=== PATIENT | female | born 1975 | race American Indian/Alaskan Native ===

== ENCOUNTER 2017-07-18 18:29 | Emergency (ER) | payer MEDICAID ==
[2017-07-18] MEDS ORDERED: CATAPRES PO ONE (19:28)
[2017-07-18 19:55] LABS: Hematocrit 39.4 % (30.3-42.9); Hemoglobin 12.3 gm/dl (10.1-14.3); Mean Corpuscular HGB Conc 31 % (30-34); Mean Corpuscular Volume 73 fl (79-97); Platelet Count 195 K/mm3 (140-440); Red Blood Count 5.41 M/mm3 (3.65-5.03); Red Cell Distribution Width 17.3 % (13.2-15.2)
[2017-07-18 20:05] LABS: Calcium 9.2 mg/dL (8.4-10.2)
[2017-07-18 20:10] LABS: Mean Corpuscular Hemoglobin 23 pg (28-32)
[2017-07-18 20:59] LABS: Basophils % (Manual) 0 % (0.0-1.8); Total Cells Counted 100
[2017-07-18 21:00] LABS: Giant Platelets 1+; Ovalocytes 1+; Poikilocytosis Few
[2017-07-18 21:01] LABS: Platelet Estimate Consistent w Auto
[2017-07-18] MEDS ORDERED: APRESOLINE IV ONE ×2 (21:27→22:39)
[2017-07-18] MEDS ORDERED: FIORICET PO ONE (21:27)
--- NOTE | 2017-07-18 21:44 | Emergency Department Report ---
HPI - General Chief Complaint: High BP Time Seen by Provider: 07/18/17 21:10 - HPI HPI: Room 10 The patient is a 41-year-old female presenting with a chief complaint of headache and hypertension. The patient states her symptoms began last night with headache and left neck pain. The patient felt his low blood pressure was elevated so eventually decided to come to the emergency department for evaluation. The patient has a history of hypertension but states she is only tried home remedies to control it. Patient denied ever having chest pain/ pressure/tightness/discomfort of any type (this was confirmed via translation by the patient's visitor). Patient denies nausea/vomiting or fever. Patient states she has a headache and gives it a score of 5/10. Location: [See above] Duration: [See above] Quality: Aching Severity: 5/10 Modifying factors: [see above] Context: [see above] Mode of transportation: [not driving] ED Past Medical Hx - Past Medical History Hx Hypertension: Yes (no medications) - Surgical History Additional Surgical History: C- section X1 - Family History Family history: no significant - Social History Smoking Status: Never Smoker Substance Use Type: None (denies illicit drug use) - Medications Home Medications: Home Medications Medication Instructions Recorded Confirmed Last Taken Type amLODIPine [Norvasc] 5 mg PO DAILY #90 tab 07/19/17 Unknown Rx ED Review of Systems ROS: Stated complaint: HYPERTENSIVE Other details as noted in HPI Constitutional: no symptoms reported Eyes: denies: eye pain ENT: denies: throat pain Respiratory: cough Cardiovascular: denies: chest pain Gastrointestinal: denies: abdominal pain Genitourinary: denies: dysuria Musculoskeletal: denies: back pain Neurological: headache Physical Exam - Physical Exam Vital Signs: Vital Signs 07/18/17 07/18/17 07/18/17 19:19 19:35 20:48 Temperature 98.8 F Pulse Rate 78 78 Respiratory 16 Rate Blood Pressure 221/138 221/138 Blood Pressure [Right] O2 Sat by Pulse 98 98 Oximetry 07/18/17 07/18/17 07/18/17 20:57 21:00 21:30 Temperature 98.3 F Pulse Rate 65 61 58 L Respiratory 20 11 L 21 Rate Blood Pressure 189/111 200/123 Blood Pressure 180/125 [Right] O2 Sat by Pulse 99 99 100 Oximetry Physical Exam: GENERAL: The patient is well-developed well-nourished female lying on stretcher not appearing to be in acute distress. [] HEENT: Normocephalic. Atraumatic. Extraocular motions are intact. Patient has moist mucous membranes. Patient complains of slight pain at the left TMJ NECK: Supple. No meningitic signs are noted. Trachea midline. No carotid bruits bilaterally CHEST/LUNGS: Clear to auscultation. There is no respiratory distress noted. HEART/CARDIOVASCULAR: Regular. There is no tachycardia. There is no gallop rub or murmur. ABDOMEN: Abdomen is soft, nontender. Patient has normal bowel sounds. There is no abdominal distention. SKIN: There is no rash. There is no edema. There is no diaphoresis. NEURO: The patient is awake, alert, and oriented. The patient is cooperative. The patient has no focal neurologic deficits. The patient has normal speech. Cranial nerves II through XII grossly intact, no drift. Radiotelegraphist 5+/5 bilaterally. Normal sensation throughout MUSCULOSKELETAL: There is no evidence of acute injury. ED Course Vital Signs 07/18/17 07/18/17 07/18/17 19:19 19:35 20:48 Temperature 98.8 F Pulse Rate 78 78 Respiratory 16 Rate Blood Pressure 221/138 221/138 Blood Pressure [Right] O2 Sat by Pulse 98 98 Oximetry 07/18/17 07/18/17 07/18/17 20:57 21:00 21:30 Temperature 98.3 F Pulse Rate 65 61 58 L Respiratory 20 11 L 21 Rate Blood Pressure 189/111 200/123 Blood Pressure 180/125 [Right] O2 Sat by Pulse 99 99 100 Oximetry - Reevaluation(s) Reevaluation #1: 07/18/17 23:30 Patient began complaining of nausea, chest discomfort and diaphoresis. Patient blood pressure was found to have decreased to 138 systolic. Patient's reaction is likely secondary to blood pressure change. Will obtain stat EKG and admitted the patient to the hospital for further observation. CT findings and need for MRI for follow-up discuss with family Reevaluation #2: 07/19/17 00:11 Patient states she feels better now and does not wish to be admitted to the hospital. I discussed with the patient length my concern for her event in conjunction with her EKG findings that she should be admitted to the hospital for further evaluation. This was translated by the patient's family and the patient verbalizes understanding. Patient does not wish to stay in the hospital. Strong warnings given ED Medical Decision Making - Lab Data Result diagrams: 07/18/17 19:39 07/18/17 19:39 Laboratory Tests 07/18/17 07/18/17 07/18/17 19:39 19:39 19:39 WBC 4.7 RBC 5.41 H Hgb 12.3 Hct 39.4 MCV 73 L MCH 23 L MCHC 31 RDW 17.3 H Plt Count 195 Lymph % (Auto) Slackline Operator Add Manual Diff Complete Total Counted 100 Seg Neutrophils % Slackline Operator Seg Neuts % (Manual) 39.0 L Band Neutrophils % 0 Lymphocytes % (Manual) 49.0 H Reactive Lymphs % (Man) 0 Monocytes % (Manual) 10.0 H Eosinophils % (Manual) 2.0 Basophils % (Manual) 0 Metamyelocytes % 0 Myelocytes % 0 Promyelocytes % 0 Blast Cells % 0 Nucleated RBC % Not Reportable Seg Neutrophils # Man 1.8 Band Neutrophils # 0.0 Lymphocytes # (Manual) 2.3 Abs React Lymphs (Man) 0.0 Monocytes # (Manual) 0.5 Eosinophils # (Manual) 0.1 Basophils # (Manual) 0.0 Metamyelocytes # 0.0 Myelocytes # 0.0 Promyelocytes # 0.0 Blast Cells # 0.0 WBC Morphology Not Reportable Hypersegmented Neuts Not Reportable Hyposegmented Neuts Not Reportable Hypogranular Neuts Not Reportable Smudge Cells Not Reportable Toxic Granulation Not Reportable Toxic Vacuolation Not Reportable Dohle Bodies Not Reportable Pelger-Huet Anomaly Not Reportable Jazlyn Rods Not Reportable Platelet Estimate Consistent w auto Clumped Platelets Not Reportable Plt Clumps, EDTA Not Reportable Large Platelets Not Reportable Giant Platelets 1+ Platelet Satelliting Not Reportable Plt Morphology Comment Not Reportable RBC Morphology Not Reportable Dimorphic RBCs Not Reportable Polychromasia Not Reportable Hypochromasia Not Reportable Poikilocytosis Few Anisocytosis Not Reportable Microcytosis 1+ Macrocytosis Not Reportable Spherocytes Not Reportable Pappenheimer Bodies Not Reportable Sickle Cells Not Reportable Target Cells Not Reportable Tear Drop Cells Not Reportable Ovalocytes 1+ Helmet Cells Not Reportable [place] Bodies Not Reportable [place] Rings Not Reportable Staci Cells Not Reportable Bite Cells Not Reportable Crenated Cell Not Reportable Elliptocytes Not Reportable Acanthocytes (Spur) Not Reportable Rouleaux Not Reportable Hemoglobin C Crystals Not Reportable Schistocytes Not Reportable Malaria parasites Not Reportable Srinivas Bodies Not Reportable Hem Pathologist Commnt No Sodium 139 Potassium 3.7 Chloride 102.9 Carbon Dioxide 25 Anion Gap 15 BUN 11 Creatinine 1.1 Estimated GFR 54 BUN/Creatinine Ratio 10 Glucose 81 Calcium 9.2 Total Creatine Kinase CK-MB (CK-2) CK-MB (CK-2) Rel Index Troponin T HCG, Qual Negative 07/18/17 19:39 WBC RBC Hgb Hct MCV MCH MCHC RDW Plt Count Lymph % (Auto) Add Manual Diff Total Counted Seg Neutrophils % Seg Neuts % (Manual) Band Neutrophils % Lymphocytes % (Manual) Reactive Lymphs % (Man) Monocytes % (Manual) Eosinophils % (Manual) Basophils % (Manual) Metamyelocytes % Myelocytes % Promyelocytes % Blast Cells % Nucleated RBC % Seg Neutrophils # Man Band Neutrophils # Lymphocytes # (Manual) Abs React Lymphs (Man) Monocytes # (Manual) Eosinophils # (Manual) Basophils # (Manual) Metamyelocytes # Myelocytes # Promyelocytes # Blast Cells # WBC Morphology Hypersegmented Neuts Hyposegmented Neuts Hypogranular Neuts Smudge Cells Toxic Granulation Toxic Vacuolation Dohle Bodies Pelger-Huet Anomaly Jazlyn Rods Platelet Estimate Clumped Platelets Plt Clumps, EDTA Large Platelets Giant Platelets Platelet Satelliting Plt Morphology Comment RBC Morphology Dimorphic RBCs Polychromasia Hypochromasia Poikilocytosis Anisocytosis Microcytosis Macrocytosis Spherocytes Pappenheimer Bodies Sickle Cells Target Cells Tear Drop Cells Ovalocytes Helmet Cells [place]aba-[place] Bodies [place] Rings Staci Cells Bite Cells Crenated Cell Elliptocytes Acanthocytes (Spur) Rouleaux Hemoglobin C Crystals Schistocytes Malaria parasites Srinivas Bodies Hem Pathologist Commnt Sodium Potassium Chloride Carbon Dioxide Anion Gap BUN Creatinine Estimated GFR BUN/Creatinine Ratio Glucose Calcium Total Creatine Kinase 78 CK-MB (CK-2) < 1.0 CK-MB (CK-2) Rel Index 1.2 Troponin T < 0.010 HCG, Qual - EKG Data -: EKG Interpreted by Md EKG shows normal: sinus rhythm Rate: normal - EKG Data When compared to previous EKG there are: previous EKG unavailable Interpretation: nonspecific ST-T wave vin (T-wave inversions in leads 1, 2, aVL , aVF, V4, V5, V6 likely secondary to LVH and hypertension) - Radiology Data Radiology results: report reviewed (CT head), image reviewed (CT head) CT head (read by radiologist)-subtle patchy bilateral white matter lucency is a nonspecific finding. It may be secondary to chronic microvascular ischemic disease but could also be secondary to a demyelinating process such as MS. Further evaluation with MRI is recommended. No acute intracranial hemorrhage - Differential Diagnosis hypertensive urgency, ICH, uncontrolled hypertension, ACS, Critical care attestation.: If time is entered above; I have spent that time in minutes in the direct care of this critically ill patient, excluding procedure time. ED Disposition Clinical Impression: Hypertensive urgency, Headache, T wave inversion in EKG Disposition: LEFT AGAINST MED ADVICE Is pt being admited?: No Does the pt Need Aspirin: No Condition: Undetermined Instructions: Hypertensive Crisis (ED) Prescriptions: amLODIPine [Norvasc] 5 mg PO DAILY #90 tab Referrals: JAHAIRA MONTALVO MD [Staff Physician] - ALFR[place] (Dr. Montalvo is a primary physician. Please follow up with him to be established as a patient and for further management/evaluation of your CT head findings.) TAZ RAHMAN MD [Staff Physician] - 3-5 Days (Dr Rahman is a neurologist. Please follow up with him for further evaluation of the findings on your CT head ) Time of Disposition: 00:14 (patient leaving AMA)
[2017-07-18 22:07] LABS: Creatine Kinase MB < 1.0 ng/mL (0.0-4.0)
[2017-07-18] MEDS ORDERED: ZOFRAN ONE (23:25)
[2017-07-18] MEDS ORDERED: ZOFRAN IV ONE (23:31)
[2017-07-19 00:47] VITALS: BP 173/97
--- NOTE | 2017-07-20 14:28 | Cat Scan Report ---
FINAL REPORT EXAM: CT HEAD/BRAIN WO CON HISTORY: hypertension, headache TECHNIQUE: CT was performed from the foramen magnum through the vertex in the axial plane without the use of intravenous contrast. PRIORS: None. FINDINGS: There is subtle patchy white matter lucency. There is no mass lesion or mass effect. There are no abnormal extra-axial fluid collections. There is no evidence of acute intracranial hemorrhage or infarct. The ventricles are of normal size and configuration. The skull and orbits are unremarkable. There is mild mucosal thickening in the left frontal sinus.. IMPRESSION: Subtle patchy bilateral white matter lucency is a nonspecific finding. It may be secondary to chronic microvascular ischemic disease but could also be secondary to a demyelinating process such as MS. Further evaluation with MRI is recommended. No acute intracranial hemorrhage
== END 2017-07-19 00:58 | disposition left against medical advice (07) ==
LOC: ED 18:29
DX: I10 Essential (primary) hypertension (principal); R94.31 Abnormal electrocardiogram [ECG] [EKG]; R51 Headache
CPT/HCPCS: 36415; 70450; 80048; 82550; 82553; 84484; 84703; 85007; 85025; 93005; 93010; 96374; 96375; 96376; 99284; J0360; J2405